=== PATIENT | male | born 1985 | race Caucasian/White ===

== ENCOUNTER 2021-12-01 01:12 | Emergency (ER) | payer MEDICAID ==
[~2021-12-01] VITALS: Ht 170.2 cm; Wt 67.0 kg
[~2021-12-01 01:12] MED LIST: ACET-2708 PO; AM250 PO
[2021-12-01] MEDS ORDERED: HYDROCODONE/ACETAMINOPHEN 5/325MG TABLET PO ONE (02:30)
[2021-12-01 03:56] VITALS: BP 132/92
[2021-12-01] MEDS ORDERED: IBUP-2029 MT (04:05)
[2021-12-01] MEDS ORDERED: TOPUD MT (04:05)
== END 2021-12-01 04:52 | disposition home or self-care (01) ==
LOC: ER 01:12
DX: S62.92XA Unspecified fracture of left hand, initial encounter for closed fracture (principal); W34.00XA Accidental discharge from unspecified firearms or gun, initial encounter; Y93.89 Activity, other specified; Y92.89 Other specified places as the place of occurrence of the external cause; Y99.8 Other external cause status
CPT/HCPCS: 73130; 99283

== ENCOUNTER 2022-07-19 00:04 | Emergency (ER) | payer MEDICAID ==
[~2022-07-19] VITALS: Ht 170.2 cm; Wt 69.3 kg
[~2022-07-19 00:04] MED LIST changes: +IBUP-2029 MT; +TOPUD MT
[2022-07-19 03:21] LABS: CLARITY URINE CLEAR (CLEAR); COLOR URINE YELLOW (YELLOW); KETONES URINE TRACE (NEGATIVE); LEUKOCYTE ESTERASE URINE 3+ (NEGATIVE); NITRITE URINE NEGATIVE (NEGATIVE); OCCULT BLOOD URINE NEGATIVE (NEGATIVE); PH URINE 5.5 (4.5-8.0); PROTEIN URINE NEGATIVE (NEGATIVE); SPECIFIC GRAVITY URINE 1.023 (1.005-1.030); UROBILINOGEN URINE 0.2 E.U./dL (0.2-1.0)
[2022-07-19] MEDS ORDERED: IBUPROFEN 600MG TABLET PO STA (04:40)
[2022-07-19] MEDS ORDERED: CEFTRIAXONE SODIUM 500 MG/VIAL IM ONE (04:45)
[2022-07-19] MEDS ORDERED: DOXY100T28 PO (06:17)
[2022-07-19] MEDS ORDERED: NAPR500T7 PO (06:17)
[2022-07-19] MEDS ORDERED: D-ME473S50 PO (06:17)
[2022-07-19 06:34] VITALS: BP 139/62
== END 2022-07-19 06:35 | disposition home or self-care (01) ==
LOC: ER 00:04
DX: N34.2 Other urethritis (principal); J06.9 Acute upper respiratory infection, unspecified; Z86.11 Personal history of tuberculosis
CPT/HCPCS: 81003; 87086; 96372; 99283; J0696